=== PATIENT | female | born 1990 | race Two or more races ===

== ENCOUNTER 2021-03-23 16:04 | Emergency (ER) | payer OTHER ==
[~2021-03-23] VITALS: Ht 162.6 cm; Wt 91.0 kg
[2021-03-23 16:08] VITALS: BP 159/111
[2021-03-23] MEDS ORDERED: ACETAMINOPHEN 500MG TABLET PO ONE (16:30)
[2021-03-23] MEDS ORDERED: TETANUS, DIPHTHERIA, PERTUSSIS VAC/PF 0.5ML (>10YR OLD) IM ONE (16:30)
[2021-03-23] MEDS ORDERED: IBUP-2029 MT (17:44)
== END 2021-03-23 18:15 | disposition home or self-care (01) ==
LOC: ER 16:04
DX: S00.91XA Abrasion of unspecified part of head, initial encounter (principal); W22.8XXA Striking against or struck by other objects, initial encounter; Y93.89 Activity, other specified; Y92.89 Other specified places as the place of occurrence of the external cause; Y99.8 Other external cause status
CPT/HCPCS: 99284